=== PATIENT | female | born 2000 | race Hispanic/Latino ===

== ENCOUNTER 2024-10-18 21:23 | Emergency (ER) | payer MEDICAID ==
[2024-10-18 21:40] LABS: Bilirubin Neg (Negative); Blood, Urine 25 (Negative); Glucose, Urine (Dipstick) Normal (Negative); Ketone, Urine Negative (Negative); Leukocyte Negative (Negative); Nitrite Negative (Negative); Protein, Urine (Dipstick) Negative (Neg-Trace); Specific Gravity, Urine 1.025 (1.005-1.030); Urobilinogen Normal mg/dL (Less than 2)
[2024-10-18 21:41] LABS: Clarity Hazy (Clear)
[2024-10-18 21:43] LABS: Pregnancy Test - Urine (BHCG) POSITIVE (Negative); Pregu Control Background? CLEAR/WHITE (CLR/WHITE); Pregu Control Bar Appear? YES (CONTROL BAR); Specific Gravity 1.025 (1.002-1.036)
[2024-10-18 21:48] LABS: Bacteria/HPF 3+ HPF (None Seen); CAUTI Indications for Culture Pregnancy; RBC/HPF 0-3 HPF (0-3)
[2024-10-18 21:49] LABS: Urine Culture Reflex Yes Yes
[2024-10-19] MEDS ORDERED: Cefdinir 300 MG CAP ONE (00:37)
== END 2024-10-19 01:05 | disposition home or self-care (01) ==
LOC: CSHERS 21:23
DX: O26.891 Other specified pregnancy related conditions, first trimester (principal); O99.891 Other specified diseases and conditions complicating pregnancy; R10.9 Unspecified abdominal pain; R30.0 Dysuria; Z3A.09 9 weeks gestation of pregnancy
CPT/HCPCS: 76856; 81001; 81025; 87086

== ENCOUNTER 2025-05-21 08:49 | Outpatient (CLI) | payer OTHER ==
[2025-05-21 10:20] LABS: Hematocrit 37.5 % (34.9-44.5); Hemoglobin 11.6 g/dL (12.0-15.5); Mean Corpuscular Hemoglobin 25.7 pg (27.0-33.0); Mean Corpuscular Volume 83.1 fL (81.6-98.3); Platelet Count 217 10x3/uL (150-450); Red Blood Cell (RBC) Count 4.51 10x6/uL (3.90-5.03); White Blood Cell (WBC) Count 9.15 10x3/uL (3.5-10.5)
[2025-05-21 11:10] LABS: Syphilis Antibody Index 0.06 S/CO (<1.00 Non-Reactive)
[2025-05-21 11:12] LABS: Hep B Surf Ag Non-Reactive S/CO (NonReactive)
== END 2025-05-21 08:50 | disposition home or self-care (01) ==
LOC: CSHLAB 08:49
PROVIDERS: ATTEND Family Medicine
DX: Z01.812 Encounter for preprocedural laboratory examination (principal)
CPT/HCPCS: 85027; 86780; 86850; 86900; 86901; 87340

== ENCOUNTER 2025-05-22 09:36 | Inpatient (IN) | payer MEDICAID, OTHER, SELFPAY ==
[2025-05-21 22:28] VITALS: BMI 27.6
[2025-05-22] MEDS ORDERED: Carboprost 250 MCG/ML AMP IM PRN (09:59)
[2025-05-22] MEDS ORDERED: Tranexamic Acid 1,000 MG/10 ML VIAL IVP PRN (09:59)
[2025-05-22] MEDS ORDERED: Bicitra 30 ML UDCUP PO PRN (09:59)
[2025-05-22] MEDS ORDERED: Diphenoxylate HCl/Atropine Tablet PO PRN (09:59)
[2025-05-22] MEDS ORDERED: Methylergonovine 0.2 MG/ML VIAL IM PRN (09:59)
[2025-05-22] MEDS ORDERED: hydrALAZINE 20 MG/ML VIAL SLOW IVP PRN ×2 (09:59→20:05)
[2025-05-22] MEDS ORDERED: Famotidine/PF 20 mg/2ml Vial SLOW IVP PRN (09:59)
[2025-05-22] MEDS ORDERED: Ondansetron PF 4 MG/2 ML Vial IVP PRN ×4 (09:59→20:05)
[2025-05-22] MEDS ORDERED: Oxytocin 30 units/NS 500 ML 500 ML IV SCH (10:00)
[2025-05-22] MEDS ORDERED: Meperidine HCl/PF 25 MG (1 mL) VIAL SLOW IVP PRN (11:04)
[2025-05-22] MEDS ORDERED: diphenhydrAMINE 50 MG/ML VIAL IVP PRN (11:04)
[2025-05-22] MEDS ORDERED: Communication Order-Pharmacy FS SCH ×2 (11:15→20:30)
[2025-05-22] MEDS: Ketorolac Tromethamine 30 MG (1 mL) VIAL IVP SCH (18:18)
[2025-05-22] MEDS ORDERED: Lanolin Ointment 7 GM TUBE TOP PRN (20:05)
[2025-05-22] MEDS ORDERED: Bisacodyl 10 MG SUPP PR PRN (20:05)
[2025-05-22] MEDS ORDERED: diphenhydrAMINE 25 MG CAP PO PRN (20:05)
[2025-05-22] MEDS ORDERED: Simethicone Chewable 80 MG TAB PO PRN (20:05)
[2025-05-22] MEDS ORDERED: HYDROcodone/Acetaminophen 5/325 mg Tablet PO PRN (23:15)
[2025-05-22] MEDS ORDERED: Meperidine HCl/PF 25 MG (1 mL) VIAL IM PRN (23:15)
[2025-05-23 04:57] LABS: Hematocrit 29.5 % (34.9-44.5); Hemoglobin 9.5 g/dL (12.0-15.5); Mean Corpuscular Hemoglobin 26.2 pg (27.0-33.0); Mean Corpuscular Volume 81.3 fL (81.6-98.3); Platelet Count 181 10x3/uL (150-450); Red Blood Cell (RBC) Count 3.63 10x6/uL (3.90-5.03); White Blood Cell (WBC) Count 14.94 10x3/uL (3.5-10.5)
[2025-05-23] MEDS: Dexamethasone 10 MG/ML VIAL ONE (07:44)
[2025-05-23] MEDS: Phenylephrine 40 MG/NS 250 ML 250 ML ONE (07:44)
[2025-05-23] MEDS: Ondansetron PF 4 MG/2 ML Vial ONE (07:45)
[2025-05-23] MEDS: Oxytocin 10 UNITS/ML VIAL ONE (07:45)
[2025-05-23] MEDS: Boostrix 0.5 ML (Tdap) VIAL (>/=7 yrs of age) IM ONE (07:45)
[2025-05-23] MEDS: Ketorolac Tromethamine 30 MG (1 mL) VIAL ONE (07:45)
[2025-05-23] MEDS: Ferrous Sulfate 325 MG TAB PO SCH (07:46)
[2025-05-23] MEDS: HYDROcodone/Acetaminophen 5/325 mg Tablet PO PRN (08:33)
[2025-05-23] MEDS: Ibuprofen 800 MG TAB PO SCH (21:45)
[2025-05-25 08:28] VITALS: BP 110/69; TEMP 98.2
== END 2025-05-25 14:00 | disposition home or self-care (01) | DRG 788 ==
LOC: CSHLD 09:36 → UNDOADMIN 09:36 → CSHLD 20:07 → CSHPP 21:45
PROVIDERS: ADMIT Family Medicine; ATTEND Family Medicine
PROC: 10D00Z1 Extraction of Products of Conception, Low, Open Approach (ICD-10-PCS; principal; 2025-05-22)
PROC: 4A1HXCZ Monitoring of Products of Conception, Cardiac Rate, External Approach (ICD-10-PCS; 2025-05-22)
DX: O34.211 Maternal care for low transverse scar from previous cesarean delivery (principal); Z3A.39 39 weeks gestation of pregnancy; Z79.899 Other long term (current) drug therapy; Z79.82 Long term (current) use of aspirin; Z37.0 Single live birth
CPT/HCPCS: 36415; 51702; 85027; J1100; J1885; J2274; J2405; J2590; J7120